=== PATIENT | female | born 1980 | race African-American/Black ===

== ENCOUNTER 2016-12-12 16:18 | Emergency (ER) | payer OTHER ==
[~2016-12-12] VITALS: Ht 165.1 cm; Wt 89.0 kg
[~2016-12-12 16:18] MED LIST: HYDR-3965 PO
[2016-12-12] MEDS ORDERED: TRAM50TA4 PO (17:31)
[2016-12-12] MEDS ORDERED: CYCL10 PO (17:31)
[2016-12-12] MEDS ORDERED: IBUPROFEN 800 MG TABLET PO ONE (19:30)
[2016-12-12 19:50] VITALS: BP 113/64
== END 2016-12-12 19:55 | disposition home or self-care (01) ==
LOC: EMS 16:19
DX: H60.92 Unspecified otitis externa, left ear (principal); H66.92 Otitis media, unspecified, left ear; F17.210 Nicotine dependence, cigarettes, uncomplicated; Z88.5 Allergy status to narcotic agent
CPT/HCPCS: 99283